=== PATIENT | male | born 1995 | race Caucasian/White ===

== ENCOUNTER 2022-02-15 18:22 | Emergency (ER) | payer BC ==
[~2022-02-15] VITALS: Ht 170.2 cm; Wt 71.4 kg
[~2022-02-15 18:22] MED LIST: CEPHALEXIN250 MG/51 OR; NO MEDS
[2022-02-15] MEDS ORDERED: NAPROXEN500 MG PO (20:10)
[2022-02-15 20:29] VITALS: BP 133/81
== END 2022-02-15 20:29 | disposition home or self-care (01) | DRG 563 ==
LOC: ED 18:22
DX: S93.402A Sprain of unspecified ligament of left ankle, initial encounter (principal); X50.1XXA Overexertion from prolonged static or awkward postures, initial encounter

== ENCOUNTER 2022-03-20 15:24 | Emergency (ER) | payer BC ==
[~2022-03-20] VITALS: Ht 170.2 cm; Wt 71.7 kg
[~2022-03-20 15:24] MED LIST changes: +NAPROXEN500 MG PO
[2022-03-20 16:34] VITALS: BP 132/90
== END 2022-03-20 16:34 | disposition home or self-care (01) | DRG 179 ==
LOC: ED 15:24
DX: U07.1 COVID-19 (principal)

== ENCOUNTER 2023-09-28 11:06 | Emergency (ER) | payer BC ==
[~2023-09-28] VITALS: Ht 170.2 cm; Wt 71.2 kg
[2023-09-28] VITALS (10 sets, daily range): BP systolic 99–135; BP diastolic 52–86
[2023-09-28] MEDS ORDERED: IBUPROFEN 800 MG/TAB PO ONE (12:55)
[2023-09-28] MEDS ORDERED: ceFAZolin 1 GM/VIAL SDV IM ONE (12:55)
[2023-09-28] MEDS ORDERED: Diph, Acellular Pertussis, Tet 0.5 ML/VIAL (Tdap) SDV IM ONE (12:55)
[2023-09-28] MEDS ORDERED: STERILE WATER 10 ML/VIAL SDV IM ONE (12:55)
[2023-09-28 13:09] LABS: BASO% 0.4 % (0-3); EOS% 0.7 % (0-8); HEMATOCRIT 43.3 % (39.0-50.0); HEMOGLOBIN 14.5 g/dl (14.0-18.0); IMMATURE GRANULOCYTES 0.2 % (0.0-5.0); MEAN CELL VOLUME 92.5 fL CALC (80.0-100.0); MEAN CORPUSCULAR HGB CONC 33.5 g/dL CAL (32.0-36.0); MONO% 17.6 % (2-13); NEUT# 3.27 thou/uL (1.82-7.42); NEUT% 73.1 % (42-76); RED BLOOD COUNT 4.68 mill/uL (4.70-6.10); RED CELL DISTRI WIDTH 12.3 % (11.5-15.5)
[2023-09-28] MEDS ORDERED: KEFLEX500 MG PO (13:12)
[2023-09-28 13:36] LABS: ALBUMIN 4.6 g/dL (3.2-5.0); BILIRUBIN, TOTAL 0.5 mg/dL (0.2-1.3); POTASSIUM 4.6 mmol/l (3.5-5.1); TOTAL PROTEIN 7.3 g/dL (6.3-8.2)
== END 2023-09-28 14:29 | disposition home or self-care (01) | DRG 918 ==
LOC: ED 11:06
PROVIDERS: Nurse Practitioner Family
DX: T63.301A Toxic effect of unspecified spider venom, accidental (unintentional), initial encounter (principal); R50.9 Fever, unspecified; R52 Pain, unspecified; S61.34 Puncture wound with foreign body of finger with damage to nail; W45.8XXD Other foreign body or object entering through skin, subsequent encounter